=== PATIENT | female | born 1950 | race Caucasian/White ===

== ENCOUNTER 2022-05-07 19:48 | Emergency (ER) | payer MEDICARE ==
[~2022-05-07] VITALS: Ht 165.1 cm; Wt 76.2 kg
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
--- NOTE | 2022-05-07 20:30 | NUR ---
Note [facility] in ED - 05/07/22 at 2036 by BONNY Patient does not wish to proceed with medical care recommended by Dr. Adams. Patient given information related to possible complications, up to and including , which could occur as a result of leaving the hospital at this time. Patient verbalizes understanding of risks involved due to leaving against medical advice. Patient has signed AMA form. IV line removed and PT ambulatory with steady gait.
--- NOTE | 2022-05-07 20:47 | NUR ---
XRAY AT BEDSIDE
[2022-05-07] MEDS ORDERED: CARI350T PO (21:42)
--- NOTE | 2022-05-07 21:59 | NUR ---
Patient discharged to home in stable condition. Written and verbal after care instructions given. Patient verbalizes understanding of instruction.
[2022-05-07 22:03] VITALS: BP 135/76
== END 2022-05-07 22:03 | disposition home or self-care (01) ==
LOC: ER 20:19
DX: S13.4XXA Sprain of ligaments of cervical spine, initial encounter (principal); S23.3XXA Sprain of ligaments of thoracic spine, initial encounter; S80.02XA Contusion of left knee, initial encounter; Z96.652 Presence of left artificial knee joint; Z85.3 Personal history of malignant neoplasm of breast; Z79.899 Other long term (current) drug therapy; V89.2XXA Person injured in unspecified motor-vehicle accident, traffic, initial encounter; Y93.89 Activity, other specified; Y92.89 Other specified places as the place of occurrence of the external cause; Y99.8 Other external cause status
CPT/HCPCS: 72050-TC; 72074-TC; 73564-TC